=== PATIENT | female | born 1965 | race Asian ===

== ENCOUNTER 2017-06-05 15:42 | Outpatient (CLI) | payer BC | END 2017-06-05 19:31 | disposition home or self-care (01) | LOC: RAD 15:42 | DX: M25.512 Pain in left shoulder (principal) ==

== ENCOUNTER 2018-01-13 02:44 | Emergency (ER) | payer BC ==
[~2018-01-13] VITALS: Ht 165.1 cm; Wt 77.6 kg
[2018-01-13 03:29] LABS: PLATELET COUNT 617 K/uL (152-353)
[2018-01-13 03:35] LABS: POTASSIUM 2.9 mmol/L (3.6-5.2); SODIUM 141 mmol/L (136-145)
[2018-01-13 04:28] VITALS: BP 135/86; TEMP 98.1
== END 2018-01-13 04:28 | disposition home or self-care (01) ==
LOC: ED 02:44
PROVIDERS: Emergency Medicine
DX: M25.512 Pain in left shoulder (principal); I97.2 Postmastectomy lymphedema syndrome
CPT/HCPCS: 36415; 80053; 82550; 82553; 84484; 85027; 93005; 96374; 99284; J1885

== ENCOUNTER 2018-02-18 12:19 | Inpatient (IN) | payer BC ==
[~2018-02-18] VITALS: Ht 162.6 cm; Wt 75.9 kg
[2018-02-18 14:20] VITALS: BP 144/90; TEMP 98.6; Ht 162.6 cm; Wt 75.9 kg
[2018-02-18 14:55] LABS: PLATELET COUNT 244 K/uL (152-353)
[2018-02-18 15:22] LABS: POTASSIUM 2.9 mmol/L (3.6-5.2); SODIUM 141 mmol/L (136-145)
[2018-02-18 16:00] VITALS: BP 157/91; TEMP 100
[2018-02-18] MEDS ORDERED: SIMV40TA57 (16:41)
[2018-02-18] MEDS ORDERED: AMLODIPINE BESYLATE PO (16:42)
[2018-02-18 20:00] VITALS: BP 124/83; TEMP 98.6
[2018-02-18 23:50] VITALS: BP 114/80; TEMP 97.7
[2018-02-19 04:00] VITALS: BP 126/85; TEMP 97.6
[2018-02-19 04:56] LABS: PLATELET COUNT 208 K/uL (152-353)
[2018-02-19 05:18] LABS: POTASSIUM 3.1 mmol/L (3.6-5.2)
[2018-02-19 12:00] VITALS: BP 138/85; TEMP 97.3
[2018-02-19 16:00] VITALS: BP 135/91
== END 2018-02-19 19:55 | disposition home or self-care (01) | DRG 866 ==
LOC: MED/SURG 12:19
PROVIDERS: ADMIT Family Medicine
DX: B02.8 Zoster with other complications (principal); M54.5 Low back pain; C50.919 Malignant neoplasm of unspecified site of unspecified female breast
CPT/HCPCS: 36415; 74022; 80053; 82550; 82553; 84484; 85027; 93005; J0133; J1885; J2930

== ENCOUNTER 2018-10-05 19:42 | Emergency (ER) | payer OTHER ==
[~2018-10-05] VITALS: Ht 165.1 cm; Wt 87.1 kg
[~2018-10-05 19:42] MED LIST: AMLODIPINE BESYLATE PO; SIMV40TA57
[2018-10-05 20:25] LABS: PLATELET COUNT 309 K/uL (152-353)
[2018-10-05 22:06] VITALS: BP 146/89; TEMP 98.2
== END 2018-10-05 22:06 | disposition home or self-care (01) ==
LOC: ED 19:42
PROVIDERS: Emergency Medicine
DX: M25.512 Pain in left shoulder (principal); R68.84 Jaw pain; M79.18 Myalgia, other site; R00.0 Tachycardia, unspecified
CPT/HCPCS: 36415; 82550; 84484; 85027; 93005; 96374; 99284; J1885

== ENCOUNTER 2018-10-26 06:40 | Emergency (ER) | payer OTHER ==
[~2018-10-26] VITALS: Ht 165.1 cm; Wt 89.4 kg
[2018-10-26 08:06] LABS: PLATELET COUNT 365 K/uL (152-353)
[2018-10-26 08:24] LABS: POTASSIUM 3.1 mmol/L (3.6-5.2)
[2018-10-26 11:10] VITALS: BP 146/95; TEMP 97.2
== END 2018-10-26 11:14 | disposition short-term general hospital (02) ==
LOC: ED 06:40
PROVIDERS: Student in an Organized Health Care Education/Training Program
DX: I26.99 Other pulmonary embolism without acute cor pulmonale (principal); J18.9 Pneumonia, unspecified organism; C50.912 Malignant neoplasm of unspecified site of left female breast; R00.0 Tachycardia, unspecified
CPT/HCPCS: 80053; 84484; 85027; 85379; 87040; 93005; 96365; 96366; 96372; 96375; 99284; J0456; J0696; J1650; J2270; J2405; Q9963

== ENCOUNTER 2018-10-26 11:15 | Outpatient (CLI) | payer OTHER ==
[~2018-10-26 11:15] MED LIST changes: -SIMV40TA57; +SIMV40TA57 PO
== END 2018-10-26 12:23 | disposition short-term general hospital (02) ==
LOC: AMB 11:15
DX: I26.99 Other pulmonary embolism without acute cor pulmonale (principal)
CPT/HCPCS: A0425; A0429

== ENCOUNTER 2018-10-30 11:34 | Outpatient (CLI) | payer OTHER ==
[2018-10-30] MEDS ORDERED: ELIQUIS5 MG PO (11:58)
[2018-10-30] MEDS ORDERED: TRAMADOL HYDROC50 MG PO (12:11)
[2018-10-30] MEDS ORDERED: LEVOFLOXACIN750 MG PO (12:14)
== END 2018-10-30 11:45 | disposition short-term general hospital (02) ==
LOC: AMB 11:34
DX: R06.00 Dyspnea, unspecified (principal)
CPT/HCPCS: A0425; A0427

== ENCOUNTER 2018-11-22 01:28 | Emergency (ER) | payer OTHER ==
[~2018-11-22] VITALS: Ht 165.1 cm; Wt 81.2 kg
[~2018-11-22 01:28] MED LIST changes: +ELIQUIS5 MG PO; +LEVOFLOXACIN750 MG PO; +TRAMADOL HYDROC50 MG PO
[2018-11-22 02:40] VITALS: BP 117/84; TEMP 98.6
== END 2018-11-22 02:45 | disposition home or self-care (01) ==
LOC: ED 01:28
DX: R51 Headache (principal); Z79.899 Other long term (current) drug therapy; W01.190A Fall on same level from slipping, tripping and stumbling with subsequent striking against furniture, initial encounter; Y92.89 Other specified places as the place of occurrence of the external cause
CPT/HCPCS: 99282

== ENCOUNTER 2018-12-05 23:08 | Emergency (ER) | payer OTHER ==
[~2018-12-05] VITALS: Ht 165.1 cm; Wt 81.2 kg
[2018-12-06 02:59] VITALS: BP 143/93; TEMP 97.7
== END 2018-12-06 02:59 | disposition home or self-care (01) ==
LOC: ED 23:08
DX: M25.562 Pain in left knee (principal)
CPT/HCPCS: 99283

== ENCOUNTER 2019-02-16 21:54 | Emergency (ER) | payer OTHER ==
[~2019-02-16] VITALS: Ht 165.1 cm; Wt 81.2 kg
[2019-02-16 22:52] VITALS: BP 124/82; TEMP 98.1
== END 2019-02-16 22:52 | disposition home or self-care (01) ==
LOC: ED 21:54
DX: M16.11 Unilateral primary osteoarthritis, right hip (principal); M54.5 Low back pain
CPT/HCPCS: 96372; 99283; J1885; J2360

== ENCOUNTER 2019-02-26 17:04 | Outpatient (CLI) | payer OTHER | END 2019-02-26 17:18 | disposition short-term general hospital (02) | LOC: AMB 17:04 | DX: R06.89 Other abnormalities of breathing (principal); R09.89 Other specified symptoms and signs involving the circulatory and respiratory systems; R07.89 Other chest pain | CPT/HCPCS: A0425; A0427 ==

== ENCOUNTER 2019-02-26 17:23 | Emergency (ER) | payer OTHER ==
[~2019-02-26] VITALS: Ht 165.1 cm; Wt 77.1 kg
[2019-02-26 18:04] LABS: PLATELET COUNT 178 K/uL (152-353)
[2019-02-26 18:14] LABS: POTASSIUM 3.5 mmol/L (3.6-5.2); SODIUM 137 mmol/L (136-145)
[2019-02-26 20:05] VITALS: BP 142/89; TEMP 98.9
== END 2019-02-26 20:05 | disposition home or self-care (01) ==
LOC: ED 17:23
PROVIDERS: Emergency Medicine
DX: F41.8 Other specified anxiety disorders (principal); T78.49XA Other allergy, initial encounter; R00.0 Tachycardia, unspecified
CPT/HCPCS: 80053; 82550; 82553; 84484; 85027; 93005; 96374; 96375; 99284; J1200; J2930

== ENCOUNTER 2019-03-15 07:50 | Emergency (ER) | payer OTHER ==
[~2019-03-15] VITALS: Ht 165.1 cm; Wt 77.1 kg
[2019-03-15 08:38] LABS: PLATELET COUNT 267 K/uL (152-353)
[2019-03-15 08:48] LABS: POTASSIUM 3.5 mmol/L (3.6-5.2)
[2019-03-15 11:52] VITALS: BP 127/94; TEMP 98.2
== END 2019-03-15 11:52 | disposition home or self-care (01) ==
LOC: ED 07:50
PROVIDERS: Emergency Medicine
DX: R10.84 Generalized abdominal pain (principal); K59.09 Other constipation
CPT/HCPCS: 36415; 80053; 81000; 82150; 83690; 85027; 96360; 96365; 96375; 99284; J1885; Q9963

== ENCOUNTER 2019-04-11 17:43 | Outpatient (CLI) | payer OTHER | END 2019-04-11 22:05 | disposition home or self-care (01) | LOC: RAD 17:43 | DX: M25.562 Pain in left knee (principal) ==

== ENCOUNTER 2019-04-13 07:00 | Emergency (ER) | payer OTHER ==
[~2019-04-13] VITALS: Ht 162.6 cm; Wt 70.3 kg
[2019-04-13 07:10] VITALS: TEMP 97.7
[2019-04-13 10:00] VITALS: BP 101/69
== END 2019-04-13 10:00 | disposition home or self-care (01) ==
LOC: ED 07:00
DX: S93.491A Sprain of other ligament of right ankle, initial encounter (principal); X50.1XXA Overexertion from prolonged static or awkward postures, initial encounter; Y92.098 Other place in other non-institutional residence as the place of occurrence of the external cause
CPT/HCPCS: 96372; 99283; J2175

== ENCOUNTER 2019-08-21 14:47 | Outpatient (CLI) | payer OTHER | END 2019-08-21 22:47 | disposition home or self-care (01) | LOC: RAD 14:47 | DX: M25.511 Pain in right shoulder (principal) ==

== ENCOUNTER 2019-11-10 09:24 | Emergency (ER) | payer OTHER ==
[~2019-11-10] VITALS: Ht 160 cm; Wt 74.8 kg
[2019-11-10 09:24] VITALS: BP 131/86; TEMP 97.4
== END 2019-11-10 12:03 | disposition home or self-care (01) ==
LOC: ED 09:24
DX: M79.18 Myalgia, other site (principal)
CPT/HCPCS: 96372; 99283; J1885

== ENCOUNTER 2019-11-13 09:59 | Outpatient (CLI) | payer OTHER | END 2019-11-13 22:23 | disposition home or self-care (01) | LOC: US 09:59 | DX: M79.605 Pain in left leg (principal) ==

== ENCOUNTER 2020-02-08 23:15 | Emergency (ER) | payer OTHER ==
[~2020-02-08] VITALS: Ht 160 cm; Wt 74.8 kg
[2020-02-09 01:00] VITALS: BP 118/72; TEMP 98.8
== END 2020-02-09 01:00 | disposition home or self-care (01) ==
LOC: ED 23:15
DX: M54.5 Low back pain (principal); G89.29 Other chronic pain
CPT/HCPCS: 96372; 99283; J1885; J2930

== ENCOUNTER 2020-02-23 17:59 | Emergency (ER) | payer OTHER ==
[~2020-02-23] VITALS: Ht 160 cm; Wt 78.5 kg
[2020-02-23 19:39] VITALS: BP 134/84; TEMP 98.1
== END 2020-02-23 19:40 | disposition home or self-care (01) ==
LOC: ED 17:59
DX: M70.52 Other bursitis of knee, left knee (principal); M70.72 Other bursitis of hip, left hip; M25.562 Pain in left knee; M25.552 Pain in left hip
CPT/HCPCS: 96372; 99283; J1885; J2930

== ENCOUNTER 2020-05-19 19:54 | Emergency (ER) | payer OTHER ==
[~2020-05-19] VITALS: Ht 160 cm; Wt 81.2 kg
[2020-05-19 23:00] VITALS: BP 116/76; TEMP 98.8
== END 2020-05-19 23:02 | disposition home or self-care (01) ==
LOC: ED 19:54
DX: S43.492A Other sprain of left shoulder joint, initial encounter (principal)
CPT/HCPCS: 96372; 99283; J1885

== ENCOUNTER 2020-06-28 07:30 | Emergency (ER) | payer OTHER ==
[~2020-06-28] VITALS: Ht 162.6 cm; Wt 84.8 kg
[2020-06-28 07:30] VITALS: TEMP 98.4
[2020-06-28 08:29] LABS: PLATELET COUNT 215 K/uL (152-353); POTASSIUM 3.4 mmol/L (3.6-5.2)
[2020-06-28 08:48] LABS: PARTIAL THROMBOPLASTIN TIME 21.6 SECONDS (24.5-33.6)
[2020-06-28 10:30] VITALS: BP 157/98
== END 2020-06-28 10:52 | disposition home or self-care (01) ==
LOC: ED 07:37
PROVIDERS: Hospitalist
DX: I82.622 Acute embolism and thrombosis of deep veins of left upper extremity (principal)
CPT/HCPCS: 80048; 85027; 85379; 85610; 85730; 96372; 99283; J2270

== ENCOUNTER 2020-12-24 17:55 | Outpatient (CLI) | payer OTHER | END 2020-12-24 22:53 | disposition home or self-care (01) | LOC: RAD 17:55 | PROVIDERS: ATTEND Physician Assistant | DX: M25.562 Pain in left knee (principal) ==

== ENCOUNTER 2020-12-25 11:17 | Emergency (ER) | payer OTHER ==
[~2020-12-25] VITALS: Ht 162.6 cm; Wt 84.8 kg
[2020-12-25 12:27] VITALS: BP 129/77; TEMP 98.7
== END 2020-12-25 12:27 | disposition home or self-care (01) ==
LOC: ED 11:17
DX: M16.11 Unilateral primary osteoarthritis, right hip (principal); M53.3 Sacrococcygeal disorders, not elsewhere classified
CPT/HCPCS: 96372; 99283; J1885

== ENCOUNTER 2020-12-26 19:58 | Emergency (ER) | payer OTHER ==
[~2020-12-26] VITALS: Ht 160 cm; Wt 84.8 kg
[2020-12-26 22:15] VITALS: BP 148/94; TEMP 99
== END 2020-12-26 22:15 | disposition home or self-care (01) ==
LOC: ED 19:58
DX: M25.551 Pain in right hip (principal); G89.29 Other chronic pain
CPT/HCPCS: 96372; 99283; J2270; J2405; J2930

== ENCOUNTER 2020-12-31 13:09 | Outpatient (CLI) | payer OTHER | END 2020-12-31 19:10 | disposition home or self-care (01) | LOC: RAD 13:09 | PROVIDERS: ATTEND Physician Assistant | DX: M54.17 Radiculopathy, lumbosacral region (principal) ==

== ENCOUNTER 2021-05-05 12:35 | Emergency (ER) | payer OTHER ==
[~2021-05-05] VITALS: Ht 160 cm; Wt 85.3 kg
[2021-05-05 12:36] VITALS: TEMP 98.4
[2021-05-05 12:58] LABS: PLATELET COUNT 351 K/uL (152-353)
[2021-05-05 15:00] VITALS: BP 134/80
== END 2021-05-05 15:05 | disposition home or self-care (01) ==
LOC: ED 12:35
PROVIDERS: Emergency Medicine
DX: R10.32 Left lower quadrant pain (principal); R10.31 Right lower quadrant pain; E11.65 Type 2 diabetes mellitus with hyperglycemia; M54.59 Other low back pain
CPT/HCPCS: 36415; 80053; 81000; 82150; 83690; 84484; 85027; 93005; 96374; 96375; 99284; J2175; J2405; Q9963

== ENCOUNTER 2021-05-11 05:56 | Emergency (ER) | payer OTHER ==
[~2021-05-11] VITALS: Ht 160 cm; Wt 86.2 kg
[2021-05-11 06:05] VITALS: TEMP 98.3
[2021-05-11 08:15] VITALS: BP 140/87
== END 2021-05-11 08:16 | disposition home or self-care (01) ==
LOC: ED 05:56
DX: M25.512 Pain in left shoulder (principal); T78.3XXA Angioneurotic edema, initial encounter; X58.XXXA Exposure to other specified factors, initial encounter; Y92.89 Other specified places as the place of occurrence of the external cause
CPT/HCPCS: 99283

== ENCOUNTER 2021-05-24 23:12 | Emergency (ER) | payer OTHER ==
[~2021-05-24] VITALS: Ht 160 cm; Wt 87.1 kg
[2021-05-25 01:05] VITALS: BP 140/88; TEMP 98.8
== END 2021-05-25 01:05 | disposition home or self-care (01) ==
LOC: ED 23:12
DX: M79.18 Myalgia, other site (principal)
CPT/HCPCS: 96372; 99283; J1885

== ENCOUNTER 2021-06-14 12:16 | Emergency (ER) | payer OTHER ==
[~2021-06-14] VITALS: Ht 160 cm; Wt 84.4 kg
[2021-06-14 12:54] LABS: POTASSIUM 3.3 mmol/L (3.6-5.2)
[2021-06-14 12:58] LABS: PLATELET COUNT 422 K/uL (152-353)
[2021-06-14 13:50] VITALS: BP 114/88; TEMP 97.4
[2021-06-14 14:25] LABS: PARTIAL THROMBOPLASTIN TIME 35.3 SECONDS (24.5-33.6)
== END 2021-06-14 13:50 | disposition home or self-care (01) ==
LOC: ED 12:16
PROVIDERS: Hospitalist
DX: G62.89 Other specified polyneuropathies (principal); I89.0 Lymphedema, not elsewhere classified; Z79.01 Long term (current) use of anticoagulants; Z51.81 Encounter for therapeutic drug level monitoring
CPT/HCPCS: 80053; 82550; 83880; 84484; 85027; 85610; 85730; 93005; 99283

== ENCOUNTER 2021-07-13 07:30 | Outpatient (CLI) | payer OTHER | END 2021-07-13 19:29 | disposition home or self-care (01) | LOC: MRI 07:30 | PROVIDERS: ATTEND Internal Medicine Hematology & Oncology | DX: C50.412 Malignant neoplasm of upper-outer quadrant of left female breast (principal); R42 Dizziness and giddiness | CPT/HCPCS: A9576 ==

== ENCOUNTER 2021-09-26 08:58 | Outpatient (CLI) | payer OTHER | END 2021-09-26 19:09 | disposition home or self-care (01) | LOC: MRI 08:58 | PROVIDERS: ATTEND Orthopaedic Surgery | DX: M54.6 Pain in thoracic spine (principal); M54.2 Cervicalgia ==

== ENCOUNTER 2021-10-03 22:10 | Emergency (ER) | payer OTHER ==
[~2021-10-03] VITALS: Ht 162.6 cm; Wt 80.7 kg
[2021-10-04 00:02] LABS: POTASSIUM 3.3 mmol/L (3.6-5.2)
[2021-10-04 00:52] LABS: PLATELET COUNT 396 K/uL (152-353)
[2021-10-04 01:40] VITALS: BP 145/78; TEMP 98.5
== END 2021-10-04 01:40 | disposition home or self-care (01) ==
LOC: ED 22:10
PROVIDERS: Emergency Medicine Emergency Medical Services
DX: G89.4 Chronic pain syndrome (principal); I89.0 Lymphedema, not elsewhere classified
CPT/HCPCS: 36415; 80053; 84484; 85027; 93005; 96360; 96361; 96372; 96374; 96376; 99284; J1170; J2405

== ENCOUNTER 2021-10-27 16:22 | Emergency (ER) | payer OTHER ==
[~2021-10-27] VITALS: Ht 162.6 cm; Wt 80.7 kg
[2021-10-27 16:30] VITALS: TEMP 98.7
[2021-10-27] MEDS ORDERED: TIZANIDINE HYDRO4 MG PO ×2 (17:20)
[2021-10-27 17:40] VITALS: BP 138/91
== END 2021-10-27 17:42 | disposition home or self-care (01) ==
LOC: ED 16:22
DX: G89.4 Chronic pain syndrome (principal); M79.602 Pain in left arm
CPT/HCPCS: 96372; 99282; J1885

== ENCOUNTER 2021-10-28 00:27 | Emergency (ER) | payer OTHER ==
[~2021-10-28] VITALS: Ht 162.6 cm; Wt 80.7 kg
[~2021-10-28 00:27] MED LIST changes: +TIZANIDINE HYDRO4 MG PO
[2021-10-28 01:10] VITALS: BP 114/78; TEMP 97.2
== END 2021-10-28 01:10 | disposition home or self-care (01) ==
LOC: ED 00:27
DX: G47.09 Other insomnia (principal); G89.29 Other chronic pain; M79.602 Pain in left arm; F41.8 Other specified anxiety disorders
CPT/HCPCS: 96372; 99282; J1200

== ENCOUNTER 2022-05-07 08:07 | Emergency (ER) | payer OTHER ==
[~2022-05-07] VITALS: Ht 162.6 cm; Wt 80.7 kg
[2022-05-07 08:09] VITALS: TEMP 98.4
[2022-05-07 09:09] VITALS: BP 136/94
== END 2022-05-07 09:09 | disposition home or self-care (01) ==
LOC: ED 08:07
DX: M79.622 Pain in left upper arm (principal)
CPT/HCPCS: 96372; 99283; J1885

== ENCOUNTER 2022-06-11 11:02 | Emergency (ER) | payer OTHER ==
[~2022-06-11] VITALS: Ht 162.6 cm; Wt 67.1 kg
[2022-06-11 11:05] VITALS: BP 115/92; TEMP 97.3
== END 2022-06-11 11:55 | disposition home or self-care (01) ==
LOC: ED 11:02
DX: I97.2 Postmastectomy lymphedema syndrome (principal)
CPT/HCPCS: 96372; 99282; J1885

== ENCOUNTER 2022-07-21 14:08 | Emergency (ER) | payer OTHER ==
[~2022-07-21] VITALS: Ht 160 cm; Wt 63.0 kg
[2022-07-21 14:15] VITALS: BP 117/83; TEMP 98.5
== END 2022-07-21 17:51 | disposition home or self-care (01) ==
LOC: ED 14:08
DX: G89.4 Chronic pain syndrome (principal)
CPT/HCPCS: 96372; 99282; J1885

== ENCOUNTER 2022-10-15 12:57 | Emergency (ER) | payer OTHER ==
[~2022-10-15] VITALS: Ht 160 cm; Wt 58.5 kg
[2022-10-15 14:20] VITALS: BP 148/96; TEMP 97.8
== END 2022-10-15 14:20 | disposition home or self-care (01) ==
LOC: ED 12:57
DX: Q82.0 Hereditary lymphedema (principal); C50.919 Malignant neoplasm of unspecified site of unspecified female breast
CPT/HCPCS: 96372; 99283; J1885

== ENCOUNTER 2022-10-19 04:06 | Emergency (ER) | payer OTHER ==
[~2022-10-19] VITALS: Ht 160 cm; Wt 59.0 kg
[2022-10-19 04:41] LABS: PLATELET COUNT 427 K/uL (152-353)
[2022-10-19 04:52] LABS: POTASSIUM 3.4 mmol/L (3.6-5.2)
[2022-10-19 04:57] LABS: PARTIAL THROMBOPLASTIN TIME 36.3 SECONDS (23.9-36.7)
[2022-10-19 10:05] VITALS: BP 132/76; TEMP 98.2
== END 2022-10-19 10:05 | disposition home or self-care (01) ==
LOC: ED 04:06
PROVIDERS: Internal Medicine
DX: R07.89 Other chest pain (principal); C50.919 Malignant neoplasm of unspecified site of unspecified female breast
CPT/HCPCS: 36415; 36591; 80053; 81002; 81025; 82550; 84484; 85027; 85610; 85730; 93005; 96374; 96375; 99284; J1642; J1885; Q9963

== ENCOUNTER 2022-10-26 14:39 | Emergency (ER) | payer OTHER ==
[~2022-10-26] VITALS: Ht 160 cm; Wt 59.0 kg
[2022-10-26 15:28] LABS: PLATELET COUNT 578 K/uL (152-353)
[2022-10-26 15:29] VITALS: TEMP 97.1
[2022-10-26 15:33] LABS: POTASSIUM 3.4 mmol/L (3.6-5.2)
[2022-10-26 18:55] VITALS: BP 128/90
== END 2022-10-26 18:55 | disposition home or self-care (01) ==
LOC: ED 14:39
PROVIDERS: Family Medicine
DX: M62.838 Other muscle spasm (principal); M79.602 Pain in left arm; C79.81 Secondary malignant neoplasm of breast; R41.82 Altered mental status, unspecified; R52 Pain, unspecified; Z51.5 Encounter for palliative care
CPT/HCPCS: 80053; 81000; 83880; 84484; 85027; 85379; 93005; 96374; 99284; J1885

== ENCOUNTER 2022-10-27 08:40 | Emergency (ER) | payer OTHER ==
[~2022-10-27] VITALS: Ht 160 cm; Wt 77.1 kg
[2022-10-27 08:45] VITALS: TEMP 97.1
[2022-10-27 10:23] LABS: PLATELET COUNT 535 K/uL (152-353)
[2022-10-27 10:29] LABS: POTASSIUM 3.5 mmol/L (3.6-5.2)
[2022-10-27 13:30] VITALS: BP 134/73
== END 2022-10-27 13:17 | disposition home or self-care (01) ==
LOC: ED 08:40
PROVIDERS: Emergency Medicine
DX: C50.919 Malignant neoplasm of unspecified site of unspecified female breast (principal); C78.00 Secondary malignant neoplasm of unspecified lung; C79.51 Secondary malignant neoplasm of bone
CPT/HCPCS: 36591; 80053; 84484; 85027; 93005; 96361; 96374; 96375; 99284; J1170; J1642; J2270; J2405